=== PATIENT | female | born 1945 | race Caucasian/White ===

== ENCOUNTER 2017-01-21 06:32 | Day surgery (SDC) | payer MEDICARE, OTHER ==
[2017-01-20 10:07] LABS: BASOPHILS 0.1 %; BASOPHILS ABSOLUTE 0.01 10/3/uL (0.0-0.16); EOSINOPHILS ABSOLUTE 0.08 10/3/uL (0.0-0.53); HEMATOCRIT 31.6 % (36.0-48.0); HEMOGLOBIN 9.9 g/dL (12.0-16.0); IMMATURE GRANULOCYTES 0.2 %; IMMATURE GRANULOCYTES ABSOLUTE 0.02 10/3/uL (0.0-0.11); LYMPHOCYTES 20.5 %; LYMPHOCYTES ABSOLUTE 1.66 10/3/uL (0.67-4.30); MEAN CORPUS HGB CONC 31.3 g/dL (32.0-36.0); MEAN CORPUSCULAR HEMOGLOB 30.2 pg (26.0-34.0); MEAN CORPUSCULAR VOLUME 96.3 fL (80-100); MEAN PLATELET VOLUME 10.5 fL (9.2-13.0); MONOCYTES 11.3 %; MONOCYTES ABSOLUTE 0.91 10/3/uL (0.21-1.20); NEUTROPHILS 66.9 %; PLATELET COUNT 380 10/3/uL (150-400); RBC DISTRIBUTION WIDTH 18.1 % (12.0-16.0); RED CELL COUNT 3.28 10/6/uL (4.0-5.6); WHITE BLOOD CELLS 8.1 10/3/uL (4.5-10.5)
[2017-01-20 10:14] LABS: MANUAL DIFF NO %
[2017-01-20 10:21] LABS: A/G RATIO 0.9 (0.7-1.9); ALBUMIN 3.4 G/DL (3.5-5.0); ALKALINE PHOSPHATASE 118 U/L (45-117); BUN (BLOOD UREA NITROGEN) 12 MG/DL (6-23); CALCIUM, SERUM 8.5 MG/DL (8.5-10.4); CHLORIDE, SERUM 107 MMOL/L (96-112); CO2 (CARBON DIOXIDE) 24 MMOL/L (24-34); CREATININE 1.02 MG/DL (0.55-1.02); GFR AFRICAN AMERICAN 64 ML/MIN (>=60); GFR NON AFRICAN AMERICAN 55 ML/MIN (>=60); GLOBULIN 3.8 G/DL (2.5-4.1); GLUCOSE, SERUM 115 MG/DL (60-99); POTASSIUM, SERUM 4.5 MMOL/L (3.5-5.3); SGOT(AST) 15 U/L (5-40); SGPT(ALT) 17 U/L (5-65); SODIUM, SERUM 139 MMOL/L (135-148); TOTAL BILIRUBIN 0.5 MG/DL (0-1.2); TOTAL PROTEIN 7.2 G/DL (6.0-8.5)
--- NOTE | ~2017-01-21 | OP ---
Record Of Operation [facility] [address] [place]. [address] NAME: HEAVEN JOHNSTON : 47 STATUS : REG [facility] PAT#: [id number] AGE: 72 ADM/REG DATE : 01/21/17 MR#: [id number] REPORT SERV DATE: 01/21/17 DICTATED BY: MAGDA VILLARREAL DATE: 01/21/17 REPORT STATUS : Draft TRANSCRIBED BY: CLEOPATRA DATE: 01/21/17 DATE OF PROCEDURE: PREOPERATIVE DIAGNOSIS: Left breast multifocal invasive lobular cancer. POSTOPERATIVE DIAGNOSIS: Left breast multifocal invasive lobular cancer. PROCEDURE: 1. Left breast simple mastectomy. 2. Left axillary sentinel node biopsy. 3. Left axillary dissection. INDICATION FOR THE PROCEDURE: Ms. Johnston is a 72-year-old patient with some significant medical issues. She was diagnosed at the outside facility with two lobular breast cancers in the left breast. These appear to be different tumors under the microscope. The patient is motivated for mastectomy without reconstruction, I believe this is the best option for her. We are planning on a sentinel lymph node biopsy on the left side. She has no obvious lymphadenopathy on exam or ultrasound. She understands an axillary dissection will be performed on those concerned of metastatic disease on the sentinel lymph node. OPERATIVE FINDINGS: The patient presented for lymphoscintigraphy scan yesterday showing good uptake in the left axilla. The patient was taken to the operating room in supine position. She was placed under general anesthesia without any complications. The gamma probe was placed in the left axilla and good uptake was noted. Methylene blue was not utilized. The left breast and axilla were prepped and draped in sterile fashion. An incision was drawn on the patient's skin to encompass the majority of the anterior skin on the chest wall as well as all of the breast tissue in the nipple-areolar complex. An incision was made with a #15 blade. Sharp dissection was carried down to the level of breast parenchyma. Dissection was carried out to the extent of the breast parenchyma in all directions and taken down to the level of pectoralis major fascia. The fascia was taken off the muscle with the breast intact. The breast was divided from the axillary fat pad at the axillary tail. The sentinel node was found in the edge of the mastectomy specimen, its ex-vivo count was approximately 4500, this was sent immediate evaluation by Pathology. The breast was divided from the axillary fat pad at the axillary tail, marked with sutures and sent for permanent Pathology. Pathology called and noted that they did see two clusters of atypical cells, but no obvious malignancy. The level of concern for the pathologist regarding the lymph node was quite high. I had already been concerned regarding this lymph node on excision, secondary to multiple firm nodular areas in the lymph node. Due to these above-noted factors, I decided to do a modified axillary dissection with removal of the majority of level 1 and 2 lymph nodes. Care was noted not to go past the vascular bundle or to the axillary vein. Palpation was utilized to ensure no grossly abnormal lymph nodes were left behind, this was sent as axillary content, left side, permanent, no marking sutures. The wound was copiously irrigated with warm saline and hemostasis was achieved. Local anesthetic was infiltrated in the skin and soft tissues, as well as the muscle. The incision was closed in two layers, first with interrupted Vicryl sutures in buried fashion, the remaining skin edges were reapproximated using a running 4-0 Monocryl. A #15 round Record Of Operation [facility] [address] [place]. [address] NAME: HEAVEN JOHNSTON : 47 STATUS : REG [facility] PAT#: [id number] AGE: 72 ADM/REG DATE : 01/21/17 MR#: [id number] REPORT SERV DATE: 01/21/17 DICTATED BY: MAGDA VILLARREAL DATE: 01/21/17 REPORT STATUS : Draft TRANSCRIBED BY: MODL DATE: 01/21/17 drain was placed in the inferior axillary line prior to closing the tissue. The drain was secured to the skin with a 2-0 nylon. The skin was cleansed, then Mastisol and Steri-Strips were applied. Burn fluff and a binder were overlaid. The patient was awoken from anesthesia without complication and taken to recovery in stable condition. ESTIMATED BLOOD LOSS: 50 mL. COMPLICATIONS: None. SPECIMEN: Left breast, left axillary sentinel node #1, and left axillary content. CINDY/CLEOPATRA Magda Villarreal MD / [id number] CC: Magda Villarreal MD [facility] Sy Mares III, M.D.
[~2017-01-21 06:32] MED LIST: B121000P IM; CELEXA10 PO; COMBIVENT RESPIM4 GM INH; FOLIC PO; KLONO5 PO; LEVOTHYROXIN50 MCG PO; LOP25 PO; MTX2.5 PO; P5 PO; PLAQ200B PO; PRILOSEC40 MG PO; PRIM250 PO; PRIN2.5 PO
== END 2017-01-21 12:36 | disposition home or self-care (01) ==
LOC: NM 06:32
PROVIDERS: Surgery Surgical Oncology
PROC: 07B63ZX Excision of Left Axillary Lymphatic, Percutaneous Approach, Diagnostic (ICD-10-PCS; 2017-01-21)
PROC: 0HBU0ZZ Excision of Left Breast, Open Approach (ICD-10-PCS; principal; 2017-01-21 07:45)
DX: C50.912 Malignant neoplasm of unspecified site of left female breast (principal); Z88.8 Allergy status to other drugs, medicaments and biological substances; I10 Essential (primary) hypertension; Z90.89 Acquired absence of other organs; M34.9 Systemic sclerosis, unspecified; Z88.2 Allergy status to sulfonamides; Z79.52 Long term (current) use of systemic steroids; Z90.710 Acquired absence of both cervix and uterus; Z79.899 Other long term (current) drug therapy
CPT/HCPCS: 71020; 78195; 80053; 85025; 88307; 88331; 88342; 93005; A9270-GY; A9541; J0690; J1720; J2250; J2405; J3010